=== PATIENT | female | born 1970 ===

== ENCOUNTER → 2021-05-28 | Day surgery (SDC) | payer OTHER ==
[~2021-05-28] MED LIST: DICLOFENAC POTA50 MG PO; LEVOTHYROXINE25 MCG PO; ZITHROMAX500 MG PO
== END | disposition home or self-care (01) ==
LOC: ADM 05-20 12:15 → U 05-21 01:20 → ADM 05-26 11:30 → CIR.AMB 07:00
PROVIDERS: ATTEND Obstetrics & Gynecology
DX: N84.0 Polyp of corpus uteri (principal); Z20.822 Contact with and (suspected) exposure to COVID-19; E03.9 Hypothyroidism, unspecified